=== PATIENT | male | born 1995 ===

== ENCOUNTER 2016-12-01 12:16 | Emergency (ER) | payer SELFPAY ==
[2016-12-01 12:23] VITALS: BP 143/76
--- NOTE | 2016-12-01 12:59 | ER Document Report ---
HPI - HPI Pain Level: 4 Notes: Patient is a 20-year-old male presents to the ED complaining of a laceration to his right third digit at the PIP joint posteriorly. Patient states that he was upset and punched a mailbox and caught a metal edge which sliced his finger. Patient states that he did wash it out and he did have it covered upon arrival. Patient continues to have full range of motion of the finger without any problems otherwise. He has not had any medications for symptoms. Patient states that he does have some anger issues and he punched a mailbox because he can punch people. Denies any fever, URI, chest pain, palpitations, shortness of breath, dyspnea, abdominal pain, nausea/vomiting, rash. - ROS Notes: REVIEW OF SYSTEMS: CONSTITUTIONAL : Denies fever, chills, or sweats. Denies recent illness. EENT: Denies eye, ear, throat, or mouth pain or symptoms. Denies nasal or sinus congestion or discharge. Denies throat, tongue, or mouth swelling or difficulty swallowing. CARDIOVASCULAR: Denies chest pain. Denies palpitations or racing or irregular heart beat. Denies ankle edema. RESPIRATORY: Denies cough, cold, or chest congestion. Denies shortness of breath, difficulty breathing, or wheezing. GASTROINTESTINAL: Denies abdominal pain or distention. Denies nausea, vomiting , or diarrhea. Denies blood in vomitus, stools, or per rectum. Denies black, tarry stools. Denies constipation. GENITOURINARY: Denies difficulty urinating, painful urination, burning, frequency, blood in urine, or discharge. MUSCULOSKELETAL: see hpi SKIN: see hpi NEUROLOGICAL: Denies confusion or altered mental status. Denies passing out or loss of consciousness. Denies dizziness or lightheadedness. Denies headache. Denies weakness or paralysis or loss of use of either side. Denies problems with gait or speech. Denies sensory loss, numbness, or tingling. PSYCHIATRIC: Denies anxiety or stress. Denies depression, suicidal ideation, or homicidal ideation. ALL OTHER SYSTEMS REVIEWED AND NEGATIVE. Dictation was performed using [employer] voice recognition software - DERM Skin Color: Normal Past Medical History - Social History Smoking Status: Unknown if Ever Smoked Family History: Reviewed & Not Pertinent Patient has suicidal ideation: No Patient has homicidal ideation: No Renal/ Medical History: Denies: Hx Peritoneal Dialysis Vertical Provider Document - CONSTITUTIONAL Agree With Documented VS: Yes Notes: PHYSICAL EXAMINATION: GENERAL: Well-appearing, well-nourished and in no acute distress. LUNGS: Breath sounds clear to auscultation bilaterally and equal. No wheezes rales or rhonchi. HEART: Regular rate and rhythm without murmurs, rubs, gallops. Musculoskeletal: Rt 3rd digit: Irregular superficial laceration noted to the posterior PIP joint (approx total 1cm). FROM to passive/active. Strength 5+/5. Neurovascularly intact distal. Extremities: No cyanosis, clubbing, or edema b/l. Peripheral pulses 2+. Capillary refill less than 3 seconds. NEUROLOGICAL: Normal sensory, motor exams PSYCH: Normal mood, normal affect. SKIN: Warm, Dry, normal turgor, no rashes or lesions noted--See MSK exam. - INFECTION CONTROL TRAVEL OUTSIDE OF THE [place] IN LAST 30 DAYS: No - RESPIRATORY O2 Sat by Pulse Oximetry: 98 Course - Re-evaluation Re-evalutation: 12/01/16 13:15 Patient is a 20-year-old afebrile, well-hydrated, male who presents the ED with a finger laceration to his right third posterior PIP joint. The laceration is superficial. No tendon involvement. Neurovascularly intact distal. Vitals are stable. PE otherwise unremarkable. Patient does not wish for any sutures/ needles. Wound was cleansed with saline and Shur-Clens thoroughly. Dermabond and Steri-Strips used to successfully approximate the edges and a finger splint was placed. Tdap will be given today otherwise. Wound instructions as reviewed. Conservative measures otherwise as needed. Recheck with your PCM in 2-3 days. Return to the ED with any worsening/concerning symptoms as reviewed. Patient in agreement. - Vital Signs Vital signs: Temp Pulse Resp BP Pulse Ox 98.9 F 86 16 143/76 H 98 12/01/16 12:22 12/01/16 12:22 12/01/16 12:22 12/01/16 12:22 12/01/16 12:22 Discharge - Discharge Clinical Impression: Finger laceration Qualifiers: Encounter type: initial encounter Finger: middle finger Damage to nail status: without damage Foreign body presence: without foreign body Laterality: right Qualified Code(s): S61.212A - Laceration without foreign body of right middle finger without damage to nail, initial encounter Condition: Stable Instructions: Antibiotic Ointment Protection ([facility]), Laceration Care ([facility]), Soap Cleansing ([facility]), Tetanus Immunization Given ([facility]) Additional Instructions: Keep the wound clean and dry May apply triple antibiotic ointment daily for the first 2 days or if any open wound Tylenol ibuprofen as needed May wash with soap and water after 24 hours avoid heavy scrubbing Leave finger splint on finger for the next week Recheck with your PCM in 2-3 days Return to the ED with any worsening symptoms and/or development of fever, headache, chest pain, palpitations, syncope, shortness of breath, trouble breathing, abdominal pain, n/v/d, muscle weakness/paralysis, abscess, red streaks, purulent discharge, or other worsening symptoms that are concerning to you. Prescriptions: Cephalexin Monohydrate [Keflex 500 mg Capsule] 500 mg PO BID #10 capsule Referrals: [facility] [Provider Group] - Follow up as needed DONELL LINN DO [ACTIVE STAFF] - Follow up as needed
[2016-12-01] MEDS ORDERED: DIPH/PERTUSS(ACELL)/TETANUS VAC/PF 0.5 ML SYR (>=10YO) IM ONE (13:29)
== END 2016-12-01 13:45 | disposition home or self-care (01) ==
LOC: ER 12:16
DX: S61.212A Laceration without foreign body of right middle finger without damage to nail, initial encounter (principal); W22.09XA Striking against other stationary object, initial encounter; Y92.009 Unspecified place in unspecified non-institutional (private) residence as the place of occurrence of the external cause; Z23 Encounter for immunization
CPT/HCPCS: 90471; 90715; 99283